=== PATIENT | female | born 1985 | race African-American/Black ===

== ENCOUNTER 2018-09-19 10:36 | Emergency (ER) | payer BC ==
[~2018-09-19] VITALS: Ht 149.9 cm; Wt 53.1 kg
[~2018-09-19 10:36] MED LIST: BACTRIM DS TAB1 EACH PO; DIAMOX SEQUELS500 MG PO; IBUPROFEN 600600 M1 PO; MACROBID 100 M100 M1 PO; PYRIDIUM200 MG PO
[2018-09-19 11:06] LABS: AMP/METHAMP Negative (Negative); BARBITURATES Negative (Negative); BENZODIAZEPINES Negative (Negative); COCAINE Negative (Negative); METHADONE Negative (Negative); OPIATES Negative (Negative); PCP Negative (Negative)
[2018-09-19 11:13] LABS: ABSOLUTE NEUTROPHILS 3.1 thou/uL (1.4-8.2); BASOPHILS 0.2 % (0.0-2.0); EOSINOPHILS 3.7 % (0.0-3.0); HEMATOCRIT 35.4 % (37.0-47.0); HEMOGLOBIN 11.9 gm/dL (12.0-15.0); LYMPHOCYTES 28.5 % (24.0-44.0); MCH 27.7 pg (26.0-34.0); MCHC 33.5 g/dL (28.0-37.0); MCV 82.7 fL (80.0-100.0); MONOCYTES 9.3 % (1.0-8.0); PLATELET COUNT 302 thou/uL (150-400); POLYS 58.3 % (36.0-66.0); RBC 4.28 mil/uL (4.20-5.00); RDW 18.4 % (10.5-14.5); WBC 5.4 thou/uL (4.0-11.0)
[2018-09-19 11:20] LABS: ANION GAP 9 mmol/L (7-16); BUN 18 mg/dL (7-18); CALCIUM 9.3 mg/dL (8.5-10.1); CHLORIDE 103 mmol/L (98-107); CO2 26 mmol/L (21-32); CREATININE 0.9 mg/dL (0.6-1.0); GLUCOSE 97 mg/dL (74-106); POTASSIUM 3.6 mmol/L (3.5-5.1); SODIUM 138 mmol/L (136-145)
[2018-09-19 11:30] LABS: SGOT 16 U/L (15-37); SGPT 17 U/L (30-65); TOTAL BILIRUBIN 0.4 mg/dL (<0.1-1.0); TOTAL PROTEIN 7.8 g/dL (6.4-8.2); TROPONIN-I <0.06 ng/mL (<0.06)
[2018-09-19] MEDS ORDERED: CLONIDINE0.1 PO (11:35)
[2018-09-19 12:38] VITALS: BP 161/102
--- NOTE | 2018-09-19 16:45 | EKG ---
[address] [address] ELECTROCARDIOGRAM REPORT Name: DARIO JIMÉNEZ Room #: DEP [facility]#: [id number] ������������������ Admission: 09/19/18 ������������������ Attend Phys: Discharge: 09/19/18 ������������������ Date of : 81 Report #: [id number] ����������������������������������������������������������������� [id number] THIS REPORT FOR: //name// [facility] ED Test Date: 2018-09-19 Test Time: 10:54:35 Pat Name: DARIO JIMÉNEZ Department: Room: Gender: F Director Transition: JOSÉ MIGUEL : 1985 Requested By: Jordan Purdy Order Number: [id number] MD: Christofer Alonso Measurements Intervals [place] Rate: 68 P: 66 [place]: 151 QRS: 34 QRSD: 80 T: 16 QT: 382 QTc: 407 Interpretive Statements Sinus rhythm Normal tracing Compared to ECG 08/08/2014 16:39:24 No significant changes Electronically Signed On 09-19-2018 16:45:07 CDT by Christofer Alonso [email or web address] ��������������������������������������������� <ELECTRONICALLY SIGNED> ���������������������������������������� By: Christofer Alonso MD, [facility] ��������������������������������������������� 09/19/18 1645 1054 1054 Christofer Alonso MD, FACC /EPI
== END 2018-09-19 12:39 | disposition home or self-care (01) ==
LOC: ER 10:36
PROVIDERS: Emergency Medicine
DX: I10 Essential (primary) hypertension (principal)